=== PATIENT | male | born 1950 | race Caucasian/White ===

== ENCOUNTER 2022-11-19 06:32 | Day surgery (SDC) | payer OTHER ==
[~2022-11-19] VITALS: Ht 182.9 cm; Wt 71.6 kg
[2022-11-19] MEDS ORDERED: ASPI81CH PO (07:16)
[2022-11-19 09:50] VITALS: BP 132/77
== END 2022-11-19 10:39 | disposition home or self-care (01) ==
LOC: ORSCSDS 06:32
PROVIDERS: Orthopaedic Surgery
PROC: 0JNJ0ZZ Release Right Hand Subcutaneous Tissue and Fascia, Open Approach (ICD-10-PCS; principal; 2022-11-19 08:00)
DX: M72.0 Palmar fascial fibromatosis [Dupuytren] (principal); Z87.891 Personal history of nicotine dependence
CPT/HCPCS: J0690; J1100; J1885; J2405; J2704; J3010; J7120